=== PATIENT | male | born 1960 | race Caucasian/White ===

== ENCOUNTER 2018-03-25 14:36 | Outpatient (REF) | payer MEDICAID, SELFPAY ==
[2018-03-25 15:04] LABS: HCT 42.9 % (40.0-50.0); HGB 14.6 g/dL (13.5-17.5); Mean Corpuscular Hemoglobin 31.9 pg (27.0-33.0); Mean Corpuscular Volume 93.7 fL (80-95); Mean Platelet Volume 12.4 fL (8.0-11.0); Platelet Count 227 x1000/uL (130-400); RBC 4.58 m/cumm (4.50-6.00); RBC Distribution Width 12.6 % (11.8-14.1); White Blood Cell Count 6.69 k/cumm (4.4-10.8)
[2018-03-25 15:45] LABS: ALT 27 U/L (12-78); AST 16 U/L (15-37); Alkaline Phosphatase 45 U/L (46-116); Anion Gap 8.4 mmol/L (3-11); BUN 16 mg/dL (7-18); Bilirubin, Total 0.4 mg/dL (0.2-1.0); CO2 27.6 mmol/L (21.0-32.0); CREATININE 1.13 mg/dL (0.70-1.30); Chloride 105 mmol/L (98-107); Cholesterol 195 mg/dL (50-200); Glucose 131 mg/dL (70-100); HDL Cholesterol 34 mg/dL (40-60); LDL CHOLESTEROL 131 mg/dL (<100); Potassium 4.3 mmol/L (3.5-5.1); Sodium 141 mmol/L (136-145); Total Protein 6.9 g/dL (6.4-8.2); Triglyceride 138 mg/dL (30-150); Vitamin B12 251 pg/mL (193-986)
== END 2018-03-25 14:56 ==
LOC: NCHCN 14:36
PROVIDERS: PCP Nurse Practitioner Family; Visit Provider Nurse Practitioner
DX: F10.10 Alcohol abuse, uncomplicated (principal); M10.9 Gout, unspecified; Z13.220 Encounter for screening for lipoid disorders; Z13.1 Encounter for screening for diabetes mellitus; M25.50 Pain in unspecified joint
CPT/HCPCS: 80053; 80061; 83721; 85027; 82607; 84550

== ENCOUNTER 2018-11-03 11:17 | Outpatient (REF) | payer MEDICAID, SELFPAY ==
[2018-11-03 20:25] LABS: TSH (W/Ref FT4) 1.61 uIU/mL (0.358-3.74)
[2018-11-03 21:06] LABS: ESR 8 MM/HR (1-20)
[2018-11-05 10:01] LABS: Rheumatoid Factor <8 IU/mL (<12.5)
[2018-11-05 15:42] LABS: ANA Interpretation Negative (NEGAT)
== END 2018-11-03 11:37 ==
LOC: NCHCN 11:17
PROVIDERS: PCP Nurse Practitioner Family; Visit Provider Nurse Practitioner
DX: G62.9 Polyneuropathy, unspecified (principal)
CPT/HCPCS: 85652; 84443; 86038; 86431

== ENCOUNTER 2019-04-18 19:58 | Outpatient (REF) | payer MEDICAID, SELFPAY ==
[2019-04-18 20:13] LABS: Vitamin B12 432 pg/mL (193-986)
[2019-04-21 13:14] LABS: Albumin 64.1 % (55.8-66.1); Total Protein 7.2 g/dL (6.3-8.2)
== END 2019-04-18 20:18 ==
LOC: NCHCN 19:58
PROVIDERS: PCP Nurse Practitioner; Visit Provider Nurse Practitioner
DX: G62.9 Polyneuropathy, unspecified (principal)
CPT/HCPCS: 82607; 84165

== ENCOUNTER 2019-09-29 12:42 | Outpatient (REF) | payer MEDICAID, SELFPAY ==
[2019-09-29 14:43] LABS: Hemoglobin A1C 11.1 % (3.8-5.6)
[2019-09-29 14:56] LABS: ALT 31 U/L (16-63); AST 13 U/L (15-37); Albumin 4.1 g/dL (3.4-5.0); Alkaline Phosphatase 67 U/L (46-116); Anion Gap 6.6 mmol/L (3-11); BUN 12 mg/dL (7-18); Bilirubin, Total 0.8 mg/dL (0.2-1.0); CO2 28.4 mmol/L (21.0-32.0); CREATININE 1.21 mg/dL (0.70-1.30); Calcium 9.3 mg/dL (8.5-10.1); Calculated LDL 123 mg/dL (<100); Chloride 101 mmol/L (98-107); Cholesterol 189 mg/dL (<200); HDL Cholesterol 35 mg/dL (40-60); Potassium 4.8 mmol/L (3.5-5.1); Sodium 136 mmol/L (136-145); Triglyceride 156 mg/dL (<150); Vitamin B12 807 pg/mL (193-986)
[2019-09-29 15:12] LABS: Glucose 485 mg/dL (74-106)
[2019-09-30 10:01] LABS: PSA, Screening 0.7 ng/mL (0.0-3.5)
== END 2019-09-29 13:02 ==
LOC: NCHCN 12:42
PROVIDERS: PCP Nurse Practitioner; Visit Provider Nurse Practitioner
DX: R73.03 Prediabetes (principal); R03.0 Elevated blood-pressure reading, without diagnosis of hypertension; G62.9 Polyneuropathy, unspecified; Z12.5 Encounter for screening for malignant neoplasm of prostate
CPT/HCPCS: 80053; 80061; 84153; 82607; 83036

== ENCOUNTER 2020-05-24 14:34 | Outpatient (REF) | payer MEDICAID, SELFPAY ==
[2020-05-24 15:05] LABS: COMMENT (LAB VIEW ONLY) 12.79 mg/dL
== END 2020-05-24 14:35 | disposition home or self-care (01) ==
LOC: NCHCN 14:34
PROVIDERS: PCP Nurse Practitioner; Visit Provider Nurse Practitioner
DX: E11.9 Type 2 diabetes mellitus without complications (principal)
CPT/HCPCS: 82043; 82570

== ENCOUNTER 2020-09-18 10:04 | Outpatient (REF) | payer MEDICAID, SELFPAY ==
[2020-09-18 16:18] LABS: ALT 32 U/L (16-63); AST 17 U/L (15-37); Albumin 4.1 g/dL (3.4-5.0); Alkaline Phosphatase 54 U/L (46-116); Anion Gap 11.3 mmol/L (3-11); BUN 16 mg/dL (7-18); Bilirubin, Total 0.5 mg/dL (0.2-1.0); CO2 25.7 mmol/L (21.0-32.0); CREATININE 1.1 mg/dL (0.70-1.30); Calculated LDL 111 mg/dL (<100); Chloride 104 mmol/L (98-107); Cholesterol 175 mg/dL (<200); Glucose 162 mg/dL (74-106); HDL Cholesterol 36 mg/dL (40-60); Potassium 4.2 mmol/L (3.5-5.1); Sodium 141 mmol/L (136-145); Total Protein 7.2 g/dL (6.4-8.2); Triglyceride 141 mg/dL (<150)
== END 2020-09-18 10:05 | disposition home or self-care (01) ==
LOC: NCHCN 10:04
PROVIDERS: PCP Nurse Practitioner; Visit Provider Nurse Practitioner
DX: E11.9 Type 2 diabetes mellitus without complications (principal)
CPT/HCPCS: 80053; 80061

== ENCOUNTER 2020-11-20 03:55 | Outpatient (CLI) | payer MEDICAID, SELFPAY ==
[2020-11-24 16:23] LABS: Testosterone, Total 346 ng/dL (240-950)
== END 2020-11-20 03:56 | disposition home or self-care (01) ==
LOC: LBO 03:56
PROVIDERS: PCP Nurse Practitioner; Visit Provider Nurse Practitioner Gerontology
DX: N52.9 Male erectile dysfunction, unspecified (principal); R53.83 Other fatigue
CPT/HCPCS: 84403

== ENCOUNTER 2021-03-18 08:31 | Outpatient (REF) | payer MEDICAID, SELFPAY ==
[2021-03-18 14:32] LABS: HCT 44.5 % (40.0-50.0); HGB 14.9 g/dL (13.5-17.5); MCH 31.3 pg (27.0-33.0); MCHC 33.5 % (32.0-36.0); MCV 93.5 fL (80-95); MPV 11.8 fL (8.0-11.0); Platelet Count 219 10^3/uL (130-400); RBC 4.76 10^6/uL (4.36-5.78); RDW 12.2 % (11.8-14.1); RDW-SD 42.4 fL; WBC 8.16 10^3/uL (4.4-10.8)
== END 2021-03-18 08:32 | disposition home or self-care (01) ==
LOC: NCHCN 08:31
PROVIDERS: PCP Nurse Practitioner; Visit Provider Nurse Practitioner
DX: R53.83 Other fatigue (principal)
CPT/HCPCS: 85027

== ENCOUNTER 2021-06-17 02:05 | Outpatient (CLI) | payer MEDICAID, SELFPAY ==
[2021-06-17 10:52] LABS: Source Nasal/Nares
[2021-06-17 17:07] LABS: COVID-19 PCR Negative (Negative)
== END 2021-06-17 02:06 | disposition home or self-care (01) ==
LOC: LBO 02:06
PROVIDERS: PCP Nurse Practitioner Family; Visit Provider Surgery
DX: Z20.822 Contact with and (suspected) exposure to COVID-19 (principal); Z01.818 Encounter for other preprocedural examination
CPT/HCPCS: 87635

== ENCOUNTER 2021-06-19 09:38 | Day surgery (SDC) | payer MEDICAID, SELFPAY ==
--- NOTE | 2021-06-19 06:57 | W.COLOREPORT ---
Colonoscopy Report Date of procedure: 06/19/21 Pre-op diagnosis general: Colon Cancer Screening Post-op diagnosis procedure note: other (colorectal polyps) Procedure: Colonoscopy with polypectomy Surgeon: Aparna Rogers Anesthesia Type: General:No Airway Estimated blood loss (mL): 3 Pathology: other (descending polyp, sigmoid polyp x3, rectal polyp x2) Complications: None Disposition: same day Indications: The patient is here for Colonoscopy pre-op. He has no family history of colon cancer. He has not had any bowel habit changes. -Discussed colonoscopy bowel prep as well as the procedure. Discussed possible complications of the procedure to include bleeding, pain, perforation, missed small lesion/polyp, sore throat, aspiration and adverse reaction to the medications. Questions were answered to patient?s satisfaction. No guarantees were implied or given.? P// Colonoscopy under sedation Prep: Miralax/Dulcolax Procedure Start Time: 11:00 Procedure End Time: 11:27 Retraction Time: 15 minutes Findings: Multiple small flat polyps Procedure Description: After informed consent was obtained the patient was taken to the procedure room and placed in a left decubitous position. Monitors were applied and a time out was done. The patients name, date of , procedure, allergies to medications and metal in their body was reviewed. The patient was then sedated. Once sedated and comfortable a rectal exam was done. External exam was normal. Internal exam revealed a normal sphincter tone and no palpable masses. The prostate felt smooth. The scope was then introduced and retro-flexed. No internal hemorrhoids, polyps or masses were identified on retro-flexion. The scope was then advanced to the cecum without difficulty. The ileocecal vlave and appendiceal orifice were identified. The prep was good. The scope was then slowly retracted over 15 minutes back into the rectum. Polyps were removed with cold forceps in the descending colon, sigmoid colon x3 and rectum x2. There was no diverticulosis noted. The scope was removed and the patient was woken up and taken back to Same day surgery in stable condition. The patient tolerated the procedure well and there were no immediate complications. Follow up: Follow up will depend on pathology results
--- NOTE | 2021-06-19 06:58 | PDOC.DSDIS_ITS ---
Discharge Plan Disposition Patient Disposition: HOME Condition: Good Discharge Details Reason For Visit: [place] Attending Provider: Aparna Rogers Primary Care Provider: Jannette Loyd Home Meds and New Rx's Prescriptions: Continued omega-3 fatty acids 500 mg capsule 500 mg PO DAILY 0RF multivitamin Tablet 1 tab PO DAILY 0RF vitamin B complex [B Complex 1] Tablet 1 tab PO DAILY 0RF metformin 500 mg tablet 1,000 mg PO BID 0RF sildenafil [Viagra] 50 mg tablet 50 mg PO DAILY PRN0RF Rx Instructions: administer 30 minutes to 4 hours before activity gabapentin 600 mg tablet 600 mg PO BID Qty: 90 2RF Rx Instructions: Use in combination with 300 mg capsules for a total dose of 900 mg twice a day. gabapentin 300 mg capsule 300 mg PO BID Qty: 90 2RF Rx Instructions: Use in combination with 600 mg capsules for a total dose of 900 mg twice a day Lantus Solostar U-100 Insulin 100 unit/mL (3 mL) insulin pen 33 unit SC HS 0RF tamsulosin [Flomax] 0.4 mg capsule 0.4 mg PO HS 0RF Discharge Instructions Instructions: Colorectal Polyps (DC) Additional Instructions: Findings: 5 small polyps Follow up: will depend on the pathology results Please call if you develop: fevers >101.5 Nausea or Vomiting Abdominal pain that is not transient Rectal bleeding that is more then a tbsp A hard abdomen and inability to pass gas DAY SURGERY UNIT POST ENDOSCOPY INSTRUCTIONS Instructions for everyone who is given Anesthesia: For your safety, please do the following for the next 24 Hours: a. Do not drive or operate dangerous equipment b. Do not drink alcohol beverages or use any recreational drugs for the first 24 hours or while taking pain medications. The medications in your body may have a reaction that can be dangerous. c. Do not make any important decisions or sign any important papers 1. Generally there are no restrictions on your activity after a day or so has gone by, but you may feel a bit fatigued for a few days. 2. After you arrive home you may have a light meal and return to a normal diet as you can tolerate it without feeling sick to your stomach. 3. After surgery, you may feel pain or discomfort. This should be only transient, but if it persists please contact your doctor. 4. If there are any questions regarding the findings of your procedure, please feel free to contact your doctor. 6. If you are unable to contact your doctor with a problem, contact the hospital at [phone]. 7. Continue all your regular medications unless directed otherwise. I understand the above instructions and have no questions. Signature of Patient or Responsible Adult Escort Date/Time Name of Responsible Adult Escort Signature of Nurse Date/Time Activity:: Activity as Tolerated Diet:: As Tolerated Discharge Orders Discharge Orders: Discharge Order (Routine); Ordered 06/19/21 Ordered By: Aparna Rogers
[2021-06-19 09:42] VITALS: BP 138/68; PULSE 123; RESP 16; TEMP 36.6; O2SAT 96
--- NOTE | 2021-06-19 10:17 | ANES.PREOP_ITS ---
General Info Date of Service Date Performed: 06/19/21 Height: 6 ft 3 in Weight: 116.2 kg Body Mass Index (BMI): 32.0 Surgical Procedure: Operation Date: 06/19/21 11:20 Proposed Procedure Side Surgeon p Colonoscopy Aparna Rogers MD Meds Allergies and Home Medications Allergies Allergy/AdvReac Type Severity Reaction Status Date / Time No Known Allergies Allergy Verified 06/19/21 09:47 Home Medication Medication Instructions Recorded multivitamin 1 tab PO DAILY 02/22/19 vitamin B complex (B Complex 1) 1 tab PO DAILY 02/22/19 omega-3 fatty acids 500 mg capsule 500 mg PO DAILY 04/04/19 metformin 500 mg tablet 1,000 mg PO BID tab 01/19/20 sildenafil 50 mg tablet (Viagra) 50 mg PO DAILY PRN 11/08/20 gabapentin 300 mg capsule 300 mg PO BID #90 cap 02/28/21 gabapentin 600 mg tablet 600 mg PO BID #90 tab 02/28/21 insulin glargine 100 unit/mL (3 33 unit SC HS ml 05/03/21 mL) subcutaneous pen (Lantus Solostar U-100 Insulin) tamsulosin 0.4 mg capsule (Flomax) 0.4 mg PO HS 06/18/21 Current Visit Medications: Current Medications Generic Name Dose Route Start Last Admin Trade Name Freq PRN Reason Stop Dose Admin Hyoscyamine Sulfate 0.125 mg 06/19/21 06:59 Hyoscyamine 0.125 Mg Sl/Oral/Chew SL DIRECTED PRN Ringer's Solution 1,000 mls @ 80 mls/hr 06/19/21 06:00 IV 07/18/21 23:59 INFUSION [facility] IV Miscellaneous Supplies 1 each 06/19/21 06:00 Iv Access IV 07/18/21 23:59 DIRECTED IVY Ondansetron HCl 4 mg 06/19/21 06:59 Ondansetron 4 Mg/2 Ml Vial IVP Q4H PRN PRN Nausea / Vomiting Sodium Chloride 0 ml 06/19/21 06:00 Normal Saline Flush 10 Ml Syr IV 07/18/21 23:59 PRN PRN Sodium Chloride 0 ml 06/19/21 06:00 Normal Saline 10 Ml Vial IJ 07/18/21 23:59 DIRECTED PRN Sterile Water 0 ml 06/19/21 06:00 Water,Injection,Sterile 10 Ml Vial IJ 07/18/21 23:59 DIRECTED PRN PFSH Active Problems Active Problems: Problem Status Onset Code BPH w urinary obs/LUTS N40.1, N13.8 Erectile dysfunction N52.9 Metatarsalgia M77.40 Sebaceous cyst L72.3 Urinary frequency R35.0 Screening for colon cancer Z12.11 Type 2 diabetes mellitus E11.9 B12 deficiency E53.8 ETOH abuse F10.10 Peripheral neuropathy G62.9 Medical History Medical History Bunion, left foot Bunion, right foot Elevated blood pressure reading History of ETOH abuse Joint pain Surgical History Surgical History No significant past surgical history Tobacco Smoking/Tobacco Use Status: Former Tobacco Use Alcohol Alcohol Intake: former Year quit: 2017 Substance Use Substance use: Never Substance use type: does not use Vital Signs and Lab Results Vital Signs Most Recent Vital Signs in EMR: Most Recent Vital Signs Temp Pulse Resp BP Pulse Ox 36.6 C 123 H 16 138/68 96 06/19/21 09:42 06/19/21 09:42 06/19/21 09:42 06/19/21 09:42 06/19/21 09:42 Lab Results Blood Type / Crossmatch: No Data to Display Complete Blood Count: No Data to Display Complete Metabolic Panel: No Data to Display Liver Function Panel: No Data to Display Coagulation Panel: No Data to Display Cardiac Panel: No Data to Display Arterial Blood Gas: No Data to Display Venous Blood Gas: No Data to Display Pancreas Panel: No Data to Display Thyroid Panel: No Data to Display Infectious Disease: Coronavirus (COVID-19)(PCR) Negative (Negative) 06/17/21 09:33 06/17/21 Coronavirus 2019 Source Nasal/Nares 06/17/21 09:33 06/17/21 Blood Cultures: No Data to Display Toxicology Panel: No Data to Display Anesthesia Assessment and Plan Anesthesia History Personal History: No History of General Anesthesia Family History: No Family History of Anesthesia Complications Exercise Tolerance Exercise Tolerance: Metabolic Equivalents>4 Pertinent Negatives Pertinent Negatives: No Symptoms of GERD, No Major Cardiovascular Symptoms or Complaints, No Major Pulmonary Symptoms or Complaints (Undiagnosed probable MAICOL) and No History of CVA/TIA Cardiac & Pulmonary Exam Cardiac Exam: Normal S1/S2 Heart Sounds Pulmonary Exam: Clear Bilateral Breath Sounds Implantable Cardiac Device Does patient have a Pacemaker or an ICD?: No Airway Exam Known Difficult Airway: No Mallampati Class: 1 Mouth Opening: Normal (> 3cm) Thyromental Distance: Greater than 3 cm Neck Range of Motion: Full ROM Neck Circumference: Thick Teeth Condition: Normal Dentition ASA Classification ASA Score: ASA 2 Emergency Case?: No NPO Status NPO Status: NPO Clears >2 hours, Solids >8 hours Anesthesia Plan Resuscitation Status: Full Code Anesthesia Technique: General Anesthesia Airway Planned: Natural Airway Monitors Used: Standard Monitors
[2021-06-19] MEDS: Lactated Ringers 1,000 ML 80 ML IV (10:19)
--- NOTE | 2021-06-19 11:20 | BOWEL_PTH ---
PATIENT: Russell Loyola LOC: [facility] U#:[id number] AGE/SX: 61/M ROOM: RE06/19/[address]: Aparna Rogers MD : 1960 BED: DIS: 06/19/2021 SPEC #: [id number] RECD: 06/19/21 13:00 STATUS: NARINDER REGa #: [id number] BRIGETTE: 06/19/21 11:[address]: Aparna Rogers DEPT: Surgical Specimen RECD BY: Uyen Darby ENTERED: 06/19/21 13:01 SP TYPE: Bowel OTHR DR: Jannette Loyd Tissues: 1 - BIOPSY BOWEL 2 - BIOPSY BOWEL 3 - BIOPSY BOWEL Procedures: GROSS AND MICRO LEVEL 4 Comments: [id number]
[2021-06-19 11:34] VITALS: BP 111/96; PULSE 105; RESP 17; TEMP 36.6; O2SAT 93
[2021-06-19 12:04] VITALS: BP 120/85; PULSE 82; RESP 16; TEMP 36.6; O2SAT 93
--- NOTE | 2021-06-21 07:03 | W.ANESPOSTOP ---
Postoperative Evaluation Date, Time and Location Date Performed: 06/19/21 Time Performed: 12:30 Patient Location: Day Surgery Unit Vital Signs Most Recent Imported Vital Signs: Most Recent Vital Signs Temp Pulse Resp BP Pulse Ox 36.6 C 82 16 120/85 93 06/19/21 12:04 06/19/21 12:04 06/19/21 12:04 06/19/21 12:04 06/19/21 12:04 Pain Score Most Recent Pain Score: Most Recent Pain Score Pain Level 0 06/19/21 12:04 Assessment Mental Status: Awake (Alert & Oriented to Patient Baseline) Airway and Respiratory Function: Patent airway with normal (patient baseline) respiratory exam Cardiovascular Function: Hemodynamically Stable Hydration Status: Adequately Hydrated Nausea & Vomiting: No Nausea or Vomiting Pain: Pt. Denies Any Pain Peripheral Nerve Block: Patient did not receive a nerve block
--- NOTE | 2021-06-21 07:08 | W.ANESPRE ---
General Info Date of Service Date Performed: 06/21/21 Height: 6 ft 3 in Weight: 116.2 kg Body Mass Index (BMI): 32.0 Surgical Procedure: Operation Date: 06/19/21 11:20 Proposed Procedure Side Surgeon p Colonoscopy Aparna Rogers MD Actual Procedure Side Surgeon p Colonoscopy W/POLYPECTOMIES Not Applicable Aparna Rogers MD Pre-Op Diagnosis Post-Op Diagnosis COLON CANCER SCREENING POLYPS Meds Allergies and Home Medications Allergies Allergy/AdvReac Type Severity Reaction Status Date / Time No Known Allergies Allergy Verified 06/19/21 09:47 Home Medication Medication Instructions Recorded multivitamin 1 tab PO DAILY 02/22/19 vitamin B complex (B Complex 1) 1 tab PO DAILY 02/22/19 omega-3 fatty acids 500 mg capsule 500 mg PO DAILY 04/04/19 metformin 500 mg tablet 1,000 mg PO BID tab 01/19/20 sildenafil 50 mg tablet (Viagra) 50 mg PO DAILY PRN 11/08/20 gabapentin 300 mg capsule 300 mg PO BID #90 cap 02/28/21 gabapentin 600 mg tablet 600 mg PO BID #90 tab 02/28/21 insulin glargine 100 unit/mL (3 33 unit SC HS ml 05/03/21 mL) subcutaneous pen (Lantus Solostar U-100 Insulin) tamsulosin 0.4 mg capsule (Flomax) 0.4 mg PO HS 06/18/21 PFSH Active Problems Active Problems: Problem Status Onset Code BPH w urinary obs/LUTS N40.1, N13.8 Erectile dysfunction N52.9 Metatarsalgia M77.40 Sebaceous cyst L72.3 Urinary frequency R35.0 Screening for colon cancer Z12.11 Type 2 diabetes mellitus E11.9 B12 deficiency E53.8 ETOH abuse F10.10 Peripheral neuropathy G62.9 Medical History Medical History Bunion, left foot Bunion, right foot Elevated blood pressure reading History of ETOH abuse Joint pain Surgical History Surgical History No significant past surgical history Tobacco Smoking/Tobacco Use Status: Former Tobacco Use Alcohol Alcohol Intake: former Year quit: 2018 Substance Use Substance use: Never Substance use type: does not use Vital Signs and Lab Results Vital Signs Most Recent Vital Signs in EMR: Most Recent Vital Signs Temp Pulse Resp BP Pulse Ox 36.6 C 82 16 120/85 93 06/19/21 12:04 06/19/21 12:04 06/19/21 12:04 06/19/21 12:04 06/19/21 12:04 Point of Care Results Point of Care Results: Finger Stick Blood Glucose 125 06/19/21 10:12 Lab Results Blood Type / Crossmatch: No Data to Display Complete Blood Count: No Data to Display Complete Metabolic Panel: No Data to Display Liver Function Panel: No Data to Display Coagulation Panel: No Data to Display Cardiac Panel: No Data to Display Arterial Blood Gas: No Data to Display Venous Blood Gas: No Data to Display Pancreas Panel: No Data to Display Thyroid Panel: No Data to Display Infectious Disease: Coronavirus (COVID-19)(PCR) Negative (Negative) 06/17/21 09:33 06/17/21 Coronavirus 2019 Source Nasal/Nares 06/17/21 09:33 06/17/21 Blood Cultures: No Data to Display Toxicology Panel: No Data to Display Anesthesia Assessment and Plan Anesthesia History Personal History: No History of General Anesthesia Family History: No Family History of Anesthesia Complications Exercise Tolerance Exercise Tolerance: Metabolic Equivalents>4 Pertinent Negatives Pertinent Negatives: No Symptoms of GERD, No Major Cardiovascular Symptoms or Complaints (Hx rapid AFib/ palpitations ), No Major Pulmonary Symptoms or Complaints (Hx reactive airway ) and No History of CVA/TIA Cardiac & Pulmonary Exam Cardiac Exam: Normal S1/S2 Heart Sounds Pulmonary Exam: Clear Bilateral Breath Sounds Implantable Cardiac Device Does patient have a Pacemaker or an ICD?: No Airway Exam Known Difficult Airway: No Mallampati Class: 1 Mouth Opening: Normal (> 3cm) Thyromental Distance: Greater than 3 cm Neck Range of Motion: Full ROM Neck Circumference: Thick Teeth Condition: Normal Dentition ASA Classification ASA Score: ASA 2 Emergency Case?: No NPO Status NPO Status: NPO Clears >2 hours, Solids >8 hours Anesthesia Plan Resuscitation Status: Full Code Anesthesia Technique: General Anesthesia Airway Planned: Natural Airway Monitors Used: Standard Monitors
[2021-06-21 07:12] VITALS: BMI 32.0
== END 2021-06-19 12:28 | disposition home or self-care (01) ==
LOC: SUR 09:38
PROVIDERS: PCP Nurse Practitioner Family; Visit Provider Surgery
PROC: 0DJD8ZZ Inspection of Lower Intestinal Tract, Via Natural or Artificial Opening Endoscopic (ICD-10-PCS; CPT 45378; principal; 2021-06-19 11:15)
DX: Z12.11 Encounter for screening for malignant neoplasm of colon (principal); K63.5 Polyp of colon; K62.1 Rectal polyp
CPT/HCPCS: 45380; 88305; J2001; J2704

== ENCOUNTER 2021-07-02 18:46 | Outpatient (REF) | payer MEDICAID, SELFPAY ==
[2021-07-02 15:00] LABS: ALT 47 U/L (16-63); AST 27 U/L (15-37); Albumin 4.3 g/dL (3.4-5.0); Alkaline Phosphatase 52 U/L (46-116); Anion Gap 9.6 mmol/L (3-11); BUN 12 mg/dL (7-18); Bilirubin, Total 0.6 mg/dL (0.2-1.0); CO2 25.4 mmol/L (21.0-32.0); CREATININE 1.1 mg/dL (0.70-1.30); Calcium 8.9 mg/dL (8.5-10.1); Chloride 105 mmol/L (98-107); Glucose 147 mg/dL (74-106); Potassium 4.4 mmol/L (3.5-5.1); Sodium 140 mmol/L (136-145); Total Protein 7.5 g/dL (6.4-8.2); Uric Acid 8.3 mg/dL (3.5-7.2)
== END 2021-07-02 18:47 | disposition home or self-care (01) ==
LOC: NCHCN 18:46
PROVIDERS: PCP Nurse Practitioner Family; Visit Provider Nurse Practitioner Family
DX: M10.9 Gout, unspecified (principal); R03.0 Elevated blood-pressure reading, without diagnosis of hypertension; Z87.898 Personal history of other specified conditions
CPT/HCPCS: 80053; 84550

== ENCOUNTER 2021-09-13 19:07 | Outpatient (REF) | payer MEDICAID, SELFPAY ==
[2021-09-13 14:49] LABS: Uric Acid 9.2 mg/dL (3.5-7.2)
== END 2021-09-13 19:08 | disposition home or self-care (01) ==
LOC: NCHCN 19:07
PROVIDERS: PCP Nurse Practitioner Family; Visit Provider Nurse Practitioner Family
DX: M10.9 Gout, unspecified (principal)
CPT/HCPCS: 84550

== ENCOUNTER → 2022-06-09 08:55 | Outpatient (BNVA) | payer MEDICARE, MEDICAID, SELFPAY | PROVIDERS: PCP Nurse Practitioner Family; Referring Provider Nurse Practitioner Family; Visit Provider Nurse Practitioner Adult Health | DX: G62.1 Alcoholic polyneuropathy (principal); E11.42 Type 2 diabetes mellitus with diabetic polyneuropathy; E53.8 Deficiency of other specified B group vitamins | CPT/HCPCS: 99213 ==

== ENCOUNTER 2022-06-12 13:07 | Outpatient (REF) | payer MEDICARE, MEDICAID, SELFPAY ==
[2022-06-12 14:16] LABS: HCT 47.4 % (40.0-50.0); HGB 15.7 g/dL (13.5-17.5); MCH 30.7 pg (27.0-33.0); MCHC 33.1 % (32.0-36.0); MCV 93 fL (80-95); MPV 11.3 fL (8.0-11.0); Platelet Count 221 10^3/uL (130-400); RBC 5.12 10^6/uL (4.36-5.78); RDW 12.3 % (11.8-14.1); RDW-SD 42.3 fL; WBC 8.09 10^3/uL (4.4-10.8)
[2022-06-12 15:01] LABS: ALT 40 U/L (16-63); AST 21 U/L (15-37); Albumin 4.7 g/dL (3.4-5.0); Alkaline Phosphatase 55 U/L (46-116); Anion Gap 8.1 mmol/L (3-11); BUN 12 mg/dL (7-18); Bilirubin, Total 0.6 mg/dL (0.2-1.0); CO2 29.9 mmol/L (21.0-32.0); CREATININE 1.1 mg/dL (0.70-1.30); Calcium 10.1 mg/dL (8.5-10.1); Chloride 104 mmol/L (98-107); Estimated GFR 76.37 (mL/min/1.73m2); Glucose 122 mg/dL (74-106); Sodium 142 mmol/L (136-145)
== END 2022-06-12 13:08 | disposition home or self-care (01) ==
LOC: NCHCN 13:07
PROVIDERS: PCP Nurse Practitioner Family; Visit Provider Nurse Practitioner Family
DX: E11.9 Type 2 diabetes mellitus without complications (principal); Z12.5 Encounter for screening for malignant neoplasm of prostate; N40.1 Benign prostatic hyperplasia with lower urinary tract symptoms
CPT/HCPCS: 80053; 84153; 85027

== ENCOUNTER → 2022-08-26 10:21 | Outpatient (BNVA) | payer MEDICARE, MEDICAID, SELFPAY | PROVIDERS: PCP Nurse Practitioner Family; Visit Provider Nurse Practitioner Gerontology | DX: N40.1 Benign prostatic hyperplasia with lower urinary tract symptoms (principal); N13.8 Other obstructive and reflux uropathy | CPT/HCPCS: 51798; 99214 ==

== ENCOUNTER 2022-11-19 14:50 | Outpatient (CLI) | payer MEDICARE, MEDICAID, SELFPAY ==
--- NOTE | 2022-11-19 14:45 | DI.RAD_ITS ---
Exam(s) XR SHOULDER LT COMPLETE 2+V EXAM: XR SHOULDER LT COMPLETE 2+V CLINICAL HISTORY: LEFT SHOULDER PAIN. TECHNIQUE: 2D digital imaging was performed. Three views. COMPARISON: No exams were available for comparison FINDINGS: BONES: No acute fracture is present. No bony destructive lesion is seen. JOINTS: No dislocation present. No significant AC joint spurring. Mild spurring at the glenoid. Gl enohumeral joint space is maintained. SOFT TISSUE: Normal. IMPRESSION: Mild degenerative changes. DATA REPOSITORY: RADIATION DOSE DELIVERED:
== END 2022-11-19 14:51 | disposition home or self-care (01) ==
LOC: DIORS 14:50
PROVIDERS: PCP Nurse Practitioner Family; Referring Provider Nurse Practitioner Family; Visit Provider Student in an Organized Health Care Education/Training Program
DX: M75.02 Adhesive capsulitis of left shoulder
CPT/HCPCS: 20610; 99203; 99213; 73030; J1030

== ENCOUNTER → 2022-12-09 08:35 | Outpatient (BNVA) | payer MEDICARE, MEDICAID, SELFPAY | PROVIDERS: PCP Nurse Practitioner Family; Visit Provider Nurse Practitioner Adult Health | DX: E11.42 Type 2 diabetes mellitus with diabetic polyneuropathy (principal); G62.1 Alcoholic polyneuropathy | CPT/HCPCS: 99213 ==

== ENCOUNTER → 2022-12-10 10:13 | Outpatient (BNVA) | payer MEDICARE, MEDICAID, SELFPAY | PROVIDERS: PCP Nurse Practitioner Family; Referring Provider Nurse Practitioner Family; Visit Provider Nurse Practitioner Gerontology | DX: N40.1 Benign prostatic hyperplasia with lower urinary tract symptoms (principal); N13.8 Other obstructive and reflux uropathy; E11.9 Type 2 diabetes mellitus without complications | CPT/HCPCS: 51798; 99213 ==

== ENCOUNTER → 2023-01-16 01:01 | Outpatient (CLI) | payer MEDICARE, MEDICAID, SELFPAY ==
--- NOTE | 2023-01-16 07:30 | DI.MRI_ITS ---
Exam(s) MR UPPER JOINT LT WO EXAM: MR UPPER JOINT LT WO CLINICAL HISTORY: L SHOULDER PAIN,adhesive capsulitis,m75.02. TECHNIQUE: Multiplanar multisequence MRI was performed. COMPARISON: CR XR SHOULDER LT COMPLETE 2+V from 11/19/2022 FINDINGS: The examination is limited due to patient motion artifact. BONES: There is no fracture or contusion pattern. JOINTS: Mild degenerative changes are seen at the acromioclavicular joint. The glenohumeral joint is normal. TENDONS: Supraspinatus: There is a partial intrasubstance tear of the supraspinatus tendon at its insertion si te. (Series 6001, image 13). Tendinosis of the supraspinatus tendon. Infraspinatus: There is also hyperintense signal seen at the insertion site of the infraspinatus tend on. (Series 8001, image 7). Subscapularis: Unremarkable. Teres Minor: Unremarkable. Biceps and [place]: Unremarkable. MUSCLES: Unremarkable. GLENOID LABRUM: No gross abnormality is identified, however evaluation of the labrum is suboptimal du e to motion artifact. SOFT TISSUES: Unremarkable. LIGAMENTS: Unremarkable. OTHER: There is a small amount of fluid in the subacromial subdeltoid bursa. IMPRESSION: 1. Examination limited by patient motion artifact. 2. Findings suggestive of tears involving the supraspinatus and infraspinatus tendon as described abo ve. 3. Small amount of fluid in the subacromial subdeltoid bursa. 4. Degenerative changes seen at the acromioclavicular joint. DATA REPOSITORY:
== END ==
PROVIDERS: PCP Nurse Practitioner Family; Visit Provider Student in an Organized Health Care Education/Training Program
DX: M75.02 Adhesive capsulitis of left shoulder (principal); M25.512 Pain in left shoulder
CPT/HCPCS: 73221

== ENCOUNTER → 2023-01-21 09:12 | Outpatient (BNVA) | payer MEDICARE, MEDICAID, SELFPAY | PROVIDERS: PCP Nurse Practitioner Family; Referring Provider Nurse Practitioner Family; Visit Provider Student in an Organized Health Care Education/Training Program | DX: M75.02 Adhesive capsulitis of left shoulder (principal) | CPT/HCPCS: 99214 ==

== ENCOUNTER 2023-02-05 09:12 | Day surgery (SDC) | payer MEDICARE, MEDICAID, SELFPAY ==
[2023-02-05] VITALS (12 sets, daily range): BP systolic 114–157; BP diastolic 78–101; PULSE 59–97; RESP 11–20; TEMP 36.3–36.6; O2SAT 95–99; BMI 30.9
--- NOTE | 2023-02-05 06:55 | W.ANESPRE ---
General Info Date of Service Date Performed: 02/05/23 Height: 6 ft 3 in Weight: 112.491 kg Body Mass Index (BMI): 30.9 Surgical Procedure: Operation Date: 02/05/23 11:40 Proposed Procedure Side Surgeon p Shoulder Manipulation Left Man Singh MD Meds Allergies and Home Medications Allergies Allergy/AdvReac Type Severity Reaction Status Date / Time No Known Allergies Allergy Verified 02/04/23 14:39 Home Medication Medication Instructions Recorded multivitamin 1 tab PO DAILY 02/22/19 vitamin B complex (B Complex 1 1 tab PO DAILY 02/22/19 tablet) omega-3 fatty acids 500 mg capsule 500 mg PO DAILY 04/04/19 metformin 500 mg tablet 1,000 mg PO BID 01/19/20 allopurinol 100 mg tablet 100 mg PO DAILY 06/09/22 vardenafil 10 mg tablet 10 mg PO DAILY 06/26/22 gabapentin 300 mg capsule See Rx Instructions .Route 12/09/22 .COMPLEX #180 caps gabapentin 600 mg tablet See Rx Instructions .Route 12/09/22 .COMPLEX #90 tabs insulin glargine 100 unit/mL (3 3 unit subcut QPM 01/21/23 mL) subcutaneous pen (Lantus Solostar U-100 Insulin) tamsulosin 0.4 mg capsule 0.4 mg PO DAILY 01/21/23 celecoxib 100 mg capsule (Celebrex) 100 mg PO BID 02/04/23 Current Visit Medications: Current Medications Generic Name Dose Route Start Last Admin Trade Name Freq PRN Reason Stop Dose Admin Ringer's Solution 1,000 mls @ 30 mls/hr 02/05/23 06:00 IV 03/06/23 23:59 INFUSION IVY IV Miscellaneous Supplies 1 each 02/05/23 06:00 Iv Access IV 03/06/23 23:59 DIRECTED IVY Sodium Chloride 0 ml 02/05/23 06:00 Normal Saline Flush 10 Ml Syr IV 03/06/23 23:59 PRN PRN Sodium Chloride 0 ml 02/05/23 06:00 Normal Saline 10 Ml Vial IJ 03/06/23 23:59 DIRECTED PRN Sterile Water 0 ml 02/05/23 06:00 Water,Injection,Sterile 10 Ml Vial IJ 03/06/23 23:59 DIRECTED PRN PFSH Active Problems Active Problems: Problem Status Onset Code Erectile dysfunction N52.9 ETOH abuse F10.10 Peripheral neuropathy G62.9 B12 deficiency E53.8 Type 2 diabetes mellitus E11.9 Screening for colon cancer Z12.11 Urinary frequency R35.0 Sebaceous cyst L72.3 Metatarsalgia M77.40 Hyperplastic colon polyp K63.5 Bilateral sensorineural hearing loss H90.3 Adhesive capsulitis of left shoulder M75.02 Medical History Medical History BPH w urinary obs/LUTS Bunion, left foot Bunion, right foot Elevated blood pressure reading Fatigue Hearing loss History of ETOH abuse History of tobacco use Joint pain Retinopathy, bilateral Shortness of breath Snoring Surgical History Surgical History History of colonoscopy (~06/2021) No significant past surgical history Tobacco Smoking/Tobacco Use Status: Former Tobacco Use Alcohol Alcohol Intake: former Year quit: 2017 Substance Use Substance use: Never Substance use type: does not use Vital Signs and Lab Results Vital Signs Most Recent Vital Signs in EMR: Temp Pulse Resp BP Pulse Ox 36.5 C 76 18 120/83 97 02/05/23 10:07 02/05/23 10:07 02/05/23 10:07 02/05/23 10:07 02/05/23 10:07 Lab Results Blood Type / Crossmatch: No Data to Display Complete Blood Count: No Data to Display Complete Metabolic Panel: No Data to Display Liver Function Panel: No Data to Display Coagulation Panel: No Data to Display Cardiac Panel: No Data to Display Arterial Blood Gas: No Data to Display Venous Blood Gas: No Data to Display Pancreas Panel: No Data to Display Thyroid Panel: No Data to Display Infectious Disease: No Data to Display Blood Cultures: No Data to Display Toxicology Panel: No Data to Display Anesthesia Assessment and Plan Anesthesia History Personal History: No History of Anesthesia Complications Family History: No Family History of Anesthesia Complications Exercise Tolerance Exercise Tolerance: Metabolic Equivalents>4 Cardiac & Pulmonary Exam Cardiac Exam: Normal S1/S2 Heart Sounds Pulmonary Exam: Clear Bilateral Breath Sounds Implantable Cardiac Device Does patient have a Pacemaker or an ICD?: No Airway Exam Known Difficult Airway: No Mallampati Class: 1 Mouth Opening: Normal (> 3cm) Thyromental Distance: Greater than 3 cm Neck Range of Motion: Full ROM Neck Circumference: Thick Teeth Condition: Normal Dentition ASA Classification ASA Score: ASA 2 Emergency Case?: No NPO Status NPO Status: NPO Clears >2 hours, Solids >8 hours Anesthesia Plan Resuscitation Status: Full Code Anesthesia Technique: General Anesthesia Airway Planned: Natural Airway Pain Management: Surgeon and patient request nerve block Monitors Used: Standard Monitors Preoperative Comments:: 62 yo male for shoulder manipulation. Sig PMHx: B12 def/neuropathy, DM2 (Lantus, metformin), prev EtOH abuse, former smoker. \ Previous Anes: - colo, prop, natural airway, no issues.
--- NOTE | 2023-02-05 07:18 | W.PM.OP ---
Date of service: 02/05/23 Time of Service: 11:00 Operative Note Operative Note DATE OF PROCEDURE: 02/05/23 PRE-OP DIAGNOSIS: Left shoulder stiffness PROCEDURE: Left shoulder manipulation under anesthesia, CPT #49888 SURGEON: Man Singh ANESTHESIA TYPE: General LMA/ETT and Primary Nerve Block Refer to Anesthesia Record ESTIMATED BLOOD LOSS: 0 COMPLICATIONS: None Patient was transported to: same day Patient's condition: stable Indications: Please see complete medical record for details. Findings: Excellent release of adhesions, no instability or crepitation Procedure Description: In the operating room, general anesthesia was induced. The patient was positioned supine on the stretcher. Preoperative antibiotics were omitted. The correct patient, procedure, and side of the procedure were all verified prior to beginning. The Left shoulder was examined with range of motion about 105 degrees forward elevation and 15-20 degrees external rotation. These endpoints had a relatively firm, stiff feel. A short lever arm and gradual to steady gentle pressure was used to perform the manipulation alternating between external rotation at the side, forward elevation, and abduction with internal and external rotation. Deliberately gradually and carefully excellent releases were felt in forward elevation and external rotation. Less release needed in abduction and internal rotation. Range of motion was then tested and full. All endpoints were gently exaggerated. The shoulder joint remained stable. While the patient remained under anesthesia, all directions were stretched and repeated numerous times. The patient awoke from anesthesia without complication and was transferred to the recovery room in a stable condition.
--- NOTE | 2023-02-05 07:18 | W.PM.DSUDISC ---
Date of service: 02/05/23 Time of Service: 12:00 Discharge Plan Disposition Patient Disposition: Home Condition: Stable Discharge Details Attending Provider: Man Singh Primary Care Provider: Jannette Loyd Home Meds and New Rx's Prescriptions: New oxycodone 5 mg tablet 5 - 10 mg PO Q4H MDD 30 mg PRN (Reason: moderate to severe pain) Qty: 12 0RF Continued omega-3 fatty acids 500 mg capsule 500 mg PO DAILY gabapentin 300 mg capsule See Rx Instructions .ROUTE .COMPLEX Qty: 180 3RF Dose Instruction: TAKE ONE CAPSULE BY MOUTH TWICE A DAY IN COMBINATION WITH 600MG TABLETS TO EQUAL 900MG TWICE A DAY Rx Instructions: TAKE ONE CAPSULE AT BEDTIME WITH 600 MG TAB TO EQUAL 900MG at bedtime gabapentin 600 mg tablet See Rx Instructions .ROUTE .COMPLEX Qty: 90 3RF Dose Instruction: TAKE ONE TABLET BY MOUTH TWICE A DAY (TOTAL DAILY DOSE OF 900MG TWICE A DAY) Rx Instructions: TAKE ONE TABLET BY MOUTH TWICE A DAY (DAILY TOTAL 600 MG AM 900 MG PM) tamsulosin 0.4 mg capsule 0.4 mg PO DAILY allopurinol 100 mg tablet 100 mg PO DAILY multivitamin Tablet 1 tab PO DAILY vitamin B complex [B Complex 1] Tablet 1 tab PO DAILY metformin 500 mg tablet 1,000 mg PO BID vardenafil 10 mg tablet 10 mg PO DAILY insulin glargine [Lantus Solostar U-100 Insulin] 100 unit/mL (3 mL) insulin pen 3 unit subcut QPM celecoxib [Celebrex] 100 mg capsule 100 mg PO BID Discontinued naproxen 500 mg tablet 500 mg PO BID Discharge Instructions Additional Instructions: Surgery: Left shoulder manipulation under anesthesia Activity: Encourage increasing range of motion. Perform daily stretching exercises. Resume physical therapy tomorrow. Prescriptions: Continue home Celebrex for moderate pain & discomfort Oxycodone 5 mg take 1-2 every 4-6 hours as needed for severe pain You may use [id number] Tylenol (acetaminophen) as needed for mild pain. These pain medications may be taken all at once or in different combinations as needed. Also, recommend Colace (docusate) as a stool softener as surgery and pain medicine cause constipation. You may try kufh-puz-qjqnxce diphenhydramine (Benadryl) 25-50 mg nightly as a sleep aid Dressings: None Follow-up: 10-[address] Singh You may take off the leg compression stockings this evening at home. You may also leave them on a few days longer if you have a history of leg swelling or edema. Let us know right away if you develop any redness, drainage, fevers, chest pain, or trouble breathing. Do not drink alcohol or drive for at least 24 hours after anesthesia. Please call the office during business hours with any questions or concerns. Discharge Orders Discharge Orders: Discharge Order (Routine); Ordered 02/05/23 Ordered By: Man Singh DS: Diagnosis Discharge Diagnosis (1) Adhesive capsulitis of left shoulder: Status: Acute
[2023-02-05] MEDS: Lactated Ringers 1,000 ML 30 ML IV (10:24)
[2023-02-05] MEDS: fentaNYL 100 MCG/2 ML VIAL IVP ×2 (11:47→12:29)
[2023-02-05] MEDS: Ketorolac 15 MG/ML VIAL IVP (11:49)
[2023-02-05] MEDS: ACETAMINOPHEN 1,000 MG/100 ML BTL 400 MG IVPB (11:49)
--- NOTE | 2023-02-05 11:57 | W.ANESPOSTOP ---
Postoperative Evaluation Date, Time and Location Date Performed: 02/05/23 Time Performed: 11:57 Patient Location: PACU Vital Signs Most Recent Imported Vital Signs: Most Recent Vital Signs Temp Pulse Resp BP Pulse Ox 36.4 C L 81 17 114/78 95 02/05/23 10:59 02/05/23 10:59 02/05/23 10:59 02/05/23 10:59 02/05/23 10:59 Pain Score Most Recent Pain Score: Most Recent Pain Score Pain Level 4 02/05/23 10:59 Assessment Mental Status: Awake (Alert & Oriented to Patient Baseline) Airway and Respiratory Function: Patent airway with normal (patient baseline) respiratory exam Cardiovascular Function: Hemodynamically Stable Hydration Status: Adequately Hydrated Nausea & Vomiting: No Nausea or Vomiting Pain: Pain is tolerable per patient Peripheral Nerve Block: Regional nerve block not resolved at time of post operative discharge
--- NOTE | 2023-02-05 12:01 | W.ANESNERVE ---
Nerve Block Single Injection Procedure Date and Time Date Performed: 02/05/23 Procedure Start: 11:04 Location Where Procedure Performed Procedure Location: Day Surgery Unit Reason Performed: Postoperative Analgesia Requesting Provider: Man Singh Timeout Performed Timeout Performed: Yes Monitoring Used ECG, Blood Pressure and SpO2 Sterility Sterility: Hand Hygiene, Surgical Cap, Surgical Mask, Sterile Gloves and Chlorhexidine Sedation Given During Procedure Sedation Given (Indicate Dose Given): Versed IV Dose:: 2 mg Patient Mental Status Patient Mental Status: Sedate with meaningful communication Nerve Block 1st Nerve Block: Laterality: Left Block Type: Interscalene Ultrasound Image Saved?: Yes Needle / Catheter Used: 100mm SonoPlex II Local Anesthetic Bolus (Indicate Dose Given): Lidocaine used for local infiltration of skin, Bupivacaine 0.5% Dose:: 10 mL and Exparel Dose:: 10 mL Additives (Indicate Dose Given): None Ultrasound: Sterile probe cover and gel used Nerve Stimulator: Supplement to Ultrasound use and No twitch or parasthesia noted < 0.5 mA Paresthesia: None Procedure Tolerated: No Complications Procedure Outcome: Successful Procedure Comment: Difficulty in getting local to spread effectively in interscalene groove, more injected likely intramuscular than within the groove Performed By: Mina Still
== END 2023-02-05 13:58 | disposition home or self-care (01) ==
LOC: SUR 09:12
PROVIDERS: PCP Nurse Practitioner Family; Visit Provider Student in an Organized Health Care Education/Training Program
PROC: (CPT 23700; principal; 2023-02-05 11:30)
DX: M75.02 Adhesive capsulitis of left shoulder (principal)
CPT/HCPCS: 23700; 64415; 76942; J0131; J1885; J2001; J2250; J2704; J3010

== ENCOUNTER → 2023-02-17 09:19 | Outpatient (BNVA) | payer MEDICARE, MEDICAID, SELFPAY | PROVIDERS: PCP Nurse Practitioner Family; Referring Provider Nurse Practitioner Family; Visit Provider Student in an Organized Health Care Education/Training Program | DX: Z47.89 Encounter for other orthopedic aftercare (principal); M75.02 Adhesive capsulitis of left shoulder ==

== ENCOUNTER 2023-03-20 16:05 | Outpatient (REF) | payer MEDICARE, SELFPAY ==
[2023-03-20 14:39] LABS: HCT 41.4 % (40.0-50.0); HGB 14.5 g/dL (13.5-17.5); MCH 32.5 pg (27.0-33.0); MCV 93 fL (80-95); MPV 11.9 fL (8.0-11.0); Platelet Count 224 10^3/uL (130-400); RBC 4.46 10^6/uL (4.36-5.78); RDW 11.9 % (11.8-14.1); RDW-SD 40.9 fL; WBC 6.86 10^3/uL (4.4-10.8)
[2023-03-20 14:56] LABS: ALT 38 U/L (16-63); AST 17 U/L (15-37); Albumin 4.4 g/dL (3.4-5.0); Alkaline Phosphatase 43 U/L (46-116); Anion Gap 12.1 mmol/L (3-11); BUN 14 mg/dL (7-18); Bilirubin, Total 0.7 mg/dL (0.2-1.0); CO2 24.9 mmol/L (21.0-32.0); CREATININE 0.9 mg/dL (0.70-1.30); Calcium 9.4 mg/dL (8.5-10.1); Calculated LDL 122 mg/dL (<100); Chloride 104 mmol/L (98-107); Cholesterol 194 mg/dL (<200); Estimated GFR 97.17 (mL/min/1.73m2); Glucose 125 mg/dL (74-106); HDL Cholesterol 41 mg/dL (40-60); Potassium 4.2 mmol/L (3.5-5.1); Sodium 141 mmol/L (136-145); Total Protein 7.5 g/dL (6.4-8.2); Triglyceride 155 mg/dL (<150)
[2023-03-20 15:16] LABS: Uric Acid 6.8 mg/dL (3.5-7.2)
== END 2023-03-20 16:06 | disposition home or self-care (01) ==
LOC: NCHCN 16:05
PROVIDERS: PCP Nurse Practitioner Family; Visit Provider Nurse Practitioner Family
DX: E11.9 Type 2 diabetes mellitus without complications (principal); R00.1 Bradycardia, unspecified; M10.9 Gout, unspecified
CPT/HCPCS: 80053; 80061; 85027; 84550

== ENCOUNTER → 2023-05-05 09:21 | Outpatient (BNVA) | payer MEDICARE, SELFPAY | PROVIDERS: PCP Nurse Practitioner Family; Visit Provider Student in an Organized Health Care Education/Training Program | DX: Z47.89 Encounter for other orthopedic aftercare (principal); M75.02 Adhesive capsulitis of left shoulder ==

== ENCOUNTER → 2023-06-10 10:38 | Outpatient (BNVA) | payer MEDICARE, SELFPAY | PROVIDERS: PCP Nurse Practitioner Family; Visit Provider Nurse Practitioner Gerontology | DX: N40.1 Benign prostatic hyperplasia with lower urinary tract symptoms (principal); N13.8 Other obstructive and reflux uropathy | CPT/HCPCS: 51798; 81003; 99213 ==

== ENCOUNTER → 2023-06-17 10:27 | Outpatient (BNVA) | payer MEDICARE, SELFPAY | PROVIDERS: PCP Nurse Practitioner Family; Visit Provider Nurse Practitioner Adult Health | DX: G62.1 Alcoholic polyneuropathy (principal) | CPT/HCPCS: 99214 ==

== ENCOUNTER 2023-06-19 16:47 | Outpatient (REF) | payer MEDICARE, SELFPAY ==
[2023-06-19 15:01] LABS: Hemoglobin A1C 5.7 % (<5.7)
[2023-06-19 15:23] LABS: TSH (W/Ref FT4) 1.63 uIU/mL (0.36-3.74)
[2023-06-19 22:12] LABS: PSA, Screening 0.8 ng/mL (<=4.5)
== END 2023-06-19 16:48 | disposition home or self-care (01) ==
LOC: NCHCN 16:47
PROVIDERS: PCP Nurse Practitioner Family; Referring Provider Nurse Practitioner Family; Visit Provider Nurse Practitioner Family
DX: R00.1 Bradycardia, unspecified (principal); E11.9 Type 2 diabetes mellitus without complications; Z12.5 Encounter for screening for malignant neoplasm of prostate
CPT/HCPCS: 84153; 83036; 84443

== ENCOUNTER 2023-06-25 08:43 | Outpatient (RCR) | payer MEDICARE, SELFPAY ==
--- NOTE | 2023-06-25 09:45 | HOLTER_ITS ---
APPROVED REPORT Conclusion This is a 48-hour Holter monitor Predominant rhythm is sinus with rate of 85. Minimum was 66, maximum 119 There were no significant supraventricular dysrhythmias There were moderately frequent ventricular ectopic beats There was no atrial fibrillation, no high-grade AV block, no pauses greater than 3 seconds No patient symptoms were reported
== END 2023-07-19 23:59 | disposition home or self-care (01) ==
LOC: CARDOPNVT 08:43
PROVIDERS: PCP Nurse Practitioner Family; Visit Provider Internal Medicine Cardiovascular Disease
DX: R00.1 Bradycardia, unspecified (principal)
CPT/HCPCS: 93227; 93225; 93226

== ENCOUNTER → 2023-07-14 01:57 | Outpatient (CLI) | payer MEDICARE, SELFPAY ==
--- NOTE | 2023-07-14 08:30 | DI.US_ITS ---
APPROVED REPORT EXAM: Comprehensive 2D, Doppler, and color-flow Echocardiogram Patient Location: Out-Patient Crowd Controller: Sigrid Spencer RDCS (AE) Indications: Ventricular premature depolarization, Ventricular bigeminy Other Information Study Quality: Adequate Conclusion Normal left ventricualr wall thickness and chamber size. EF is 55-60%. Wall motion is normal Normal right ventrcular size and function Both atria are normal in size There are no structural valvular abnormalities Mild mitral regurgitation Estimated right ventricular systolic pressure is 16 mmHg Wall motion Left Ventricle The left ventricle is normal size. The left ventricular systolic function is normal. The left ventric ular ejection fraction is within the normal range. There is normal left ventricular wall thickness. T here is normal LV segmental wall motion. There is no ventricular septal defect visualized. LVEF is 57 %. Right Ventricle The right ventricle is normal size. The right ventricular systolic function is normal. Atria The left atrium size is normal. The right atrium size is normal. The interatrial septum is intact wit h no evidence for an atrial septal defect. Aortic Valve The aortic valve is normal in structure. Aortic valve is trileaflet. There is no aortic valvular sten osis. No aortic regurgitation is present. Mitral Valve The mitral valve is normal in structure. No evidence of mitral valve stenosis. Mild mitral regurgitat ion. Tricuspid Valve The tricuspid valve is normal in structure. There is no tricuspid valve stenosis. Trace tricuspid reg urgitation. The RVSP is 16.1mmHg. Pulmonic Valve The pulmonary valve is normal in structure. There is no pulmonic valvular stenosis. Trace pulmonic re gurgitation. Great Vessels The aortic root is normal in size. The ascending aorta is normal in size. Aortic arch is not well vis ualized. IVC is normal in size and collapses >50% with inspiration. Pericardium There is no pericardial effusion. 2D Dimensions IVSD d PLAX 0.64 cm M: 0.6-1.2 Ao Root d 3.24 cm M: 3.1 - 3.7 LVPW d PLAX 0.61 cm M: 0.6 - 1.2 Ao Asc Diam d 3.24 cm M: 2.6 - 3.4 LVID d PLAX 4.85 cm M: 4.2 - 5.8 LVDs 3.38 cm M: 2.5 - 4.0 LV EF Teichholz 57.3 % FS 30.16 % LV EDV (Teich) 109.9 mL LV ESV (Teich) 46.9 mL M-Mode TAPSE 2.26 cm (M/F) >1.7 Auto EF LV EDV A4C 146.6 mL LV EDV A2C 135.5 mL LV EDV BP 145.3 mL LV ESV A4C 63.5 mL LV ESV A2C 58.6 mL LV ESV BP 62.2 mL LVEF(%) A4C 56.7 % LVEF(%) A2C 56.7 % LVEF(%) BP 57.2 % LV SV A4C 83.1 ml LV SV A2C 76.9 ml LV SV BP 83.2 ml LV CO A4C 5.0 L/min LV CO A2C 4.3 L/min LV CO BP 4.7 L/min HR A4C 60.51 BPM HR A2C 56.52 BPM LV EDV Index (BP) LA Volume LA Length A4C 5.6 cm LA Length A2C 3.9 cm LA Area A4C s 17.82 cm2 LA Area A2C s 11.51 cm2 LA Vol A4C A-L 48.30 mL LA Vol A2C A-L 28.99 mL LA Vol Biplane A-L 44.9 mL LA Vol/BSA A4C A-L LA Vol/BSA A2C A-L LA Vol/BSA BP A-L 18.5 mL/m2 LA Vol A4C MOD 43.7 mL LA Vol A2C MOD 27.1 mL LA Vol BP MOD 41.0 mL RA Volume RA Area A4C 13.2 cm2 RA ESV A4C (A-L) 34.7mL RA Vol/BSA A4C A-L RA Length A4C 4.3 cm RA ESV A4C (MOD) 31.1mL LV Diastology MV E' medial 0.062 (>0.07 m/s) MV E Vmax 0.57 (0.4-1.3 m/s) MV E/E' MED 9.31 (<14) MV A Vmax 0.80 (0.4-1.3 m/s) MV E' lateral 0.087 (>0.1 m/s) E/A Ratio 0.7 MV E/E' LAT 6.55 (<14) MV E' Average 0.075 m/s MV E/E'(average) 7.69 Aortic Valve AoV Vmax 1.03 m/s LVOT Vmax 0.85 m/s AoV Peak Grad 4.3 mmHg LVOT Peak Grad 2.9 mmHg AoV Area (Vmax) 2.89 cm2 LVOT VTI 0.185 m AoV VTI 0.240 m LVOT Mean Grad 1.8 mmHg AoV Mean Андрей. 0.74 m/s LVOT SV 64.64 mL AoV Mean Grad 2.5 mmHg LVOT Diam s 2.10 cm AoV Area (VTI) 2.70 cm2 Velocity Ratio 0.83 Mitral Valve MV DT 259 (160-240 msec) MV Vmax TIPS 0.84 m/s MV Mean Grad 1.0 (<2mmHg) MV VTI 0.245 m Pulmonary Valve PV Vmax 0.98 (0.5-1.5 m/s) RVOT Vmax 0.67 m/s PV Peak Grad 3.9 mmHg RVOT Peak Gr. 1.8 mmHg PV Mean Андрей 0.59 m/s RVOT VTI 0.159 m PV Mean Grad 1.6 mmHg RVOT Mean Gr. 0.9 mmHg Tricuspid Valve RA Pressure 3.00 mmHg TR Vmax 1.81 m/s TV S' 0.10 m/s TR Peak Grad 13.0 mmHg RVSP (TR) 16.1 mmHg
== END ==
PROVIDERS: PCP Nurse Practitioner Family; Visit Provider Nurse Practitioner Family
DX: I49.3 Ventricular premature depolarization (principal)
CPT/HCPCS: 93306

== ENCOUNTER → 2023-08-11 09:23 | Outpatient (BNVA) | payer MEDICARE, SELFPAY | PROVIDERS: PCP Nurse Practitioner Family; Referring Provider Nurse Practitioner Family; Visit Provider Student in an Organized Health Care Education/Training Program | DX: M75.02 Adhesive capsulitis of left shoulder (principal) | CPT/HCPCS: 99213 ==

== ENCOUNTER → 2023-08-13 09:11 | Outpatient (BNVA) | payer MEDICARE, SELFPAY | PROVIDERS: PCP Nurse Practitioner Family; Referring Provider Nurse Practitioner Family; Visit Provider Nurse Practitioner Adult Health | DX: G62.1 Alcoholic polyneuropathy (principal) | CPT/HCPCS: 99213 ==

== ENCOUNTER → 2023-12-09 10:45 | Outpatient (BNVA) | payer MEDICARE, SELFPAY | PROVIDERS: PCP Nurse Practitioner Family; Visit Provider Nurse Practitioner Gerontology | DX: N40.1 Benign prostatic hyperplasia with lower urinary tract symptoms (principal); N13.8 Other obstructive and reflux uropathy; R35.0 Frequency of micturition | CPT/HCPCS: 51798; 99213 ==

== ENCOUNTER 2024-01-11 03:39 | Outpatient (CLI) | payer MEDICARE, SELFPAY ==
[2024-01-18 17:44] LABS: Testosterone, Free 9.48 ng/dL (3.67-13.9); Testosterone, Total 353 ng/dL (240-950)
== END 2024-01-11 03:40 | disposition home or self-care (01) ==
LOC: LBO 03:39
PROVIDERS: PCP Nurse Practitioner Family; Visit Provider Nurse Practitioner Family
DX: F52.21 Male erectile disorder (principal)
CPT/HCPCS: 36415; 84402; 84403

== ENCOUNTER → 2024-02-11 08:53 | Outpatient (BNVA) | payer MEDICARE, SELFPAY | PROVIDERS: PCP Nurse Practitioner Family; Visit Provider Nurse Practitioner Adult Health | DX: G62.1 Alcoholic polyneuropathy (principal); E53.8 Deficiency of other specified B group vitamins; E11.9 Type 2 diabetes mellitus without complications | CPT/HCPCS: 99214 ==

== ENCOUNTER 2024-03-15 16:49 | Outpatient (REF) | payer MEDICARE, SELFPAY ==
[2024-03-15 14:23] LABS: HCT 42.7 % (40.0-50.0); HGB 14.4 g/dL (13.5-17.5); MCH 31.9 pg (27.0-33.0); MCHC 33.7 % (32.0-36.0); MCV 95 fL (80-95); MPV 10.8 fL (8.0-11.0); Platelet Count 255 10^3/uL (130-400); RBC 4.51 10^6/uL (4.36-5.78); RDW 11.9 % (11.8-14.1); RDW-SD 40.9 fL; WBC 7.98 10^3/uL (4.4-10.8)
[2024-03-15 15:16] LABS: ALT 26 U/L (16-63); AST 16 U/L (15-37); Albumin 4.3 g/dL (3.4-5.0); Alkaline Phosphatase 62 U/L (46-116); BUN 10 mg/dL (7-18); Bilirubin, Total 0.71 mg/dL (0.2-1.0); Calcium 9.6 mg/dL (8.5-10.1); Calculated LDL 135 mg/dL (<100); Chloride 104 mmol/L (98-107); Cholesterol 201 mg/dL (<200); Glucose 129 mg/dL (74-106); HDL Cholesterol 47 mg/dL (40-60); Potassium 4.8 mmol/L (3.5-5.1); Sodium 140 mmol/L (136-145); Total Protein 7.7 g/dL (6.4-8.2); Triglyceride 96 mg/dL (<150); Vitamin B12 > 2000 pg/mL (193-986)
[2024-03-15 15:40] LABS: Uric Acid 6.3 mg/dL (3.5-7.2)
== END 2024-03-15 16:50 | disposition home or self-care (01) ==
LOC: NCHCN 16:49
PROVIDERS: PCP Nurse Practitioner Family; Visit Provider Nurse Practitioner Family
DX: E11.9 Type 2 diabetes mellitus without complications (principal); Z86.2 Personal history of diseases of the blood and blood-forming organs and certain disorders involving the immune mechanism; M10.9 Gout, unspecified; E78.5 Hyperlipidemia, unspecified
CPT/HCPCS: 80053; 80061; 85027; 82607; 84550

== ENCOUNTER 2024-06-16 15:15 | Outpatient (REF) | payer MEDICARE, SELFPAY ==
[2024-06-16 16:44] LABS: COMMENT (LAB VIEW ONLY) 54.23 mg/dL
== END 2024-06-16 15:16 | disposition home or self-care (01) ==
LOC: NCHCN 15:15
PROVIDERS: PCP Nurse Practitioner Family; Visit Provider Nurse Practitioner Family
DX: E11.9 Type 2 diabetes mellitus without complications (principal)
CPT/HCPCS: 82043; 82570

== ENCOUNTER → 2024-08-11 08:53 | Outpatient (BNVA) | payer MEDICARE, SELFPAY | PROVIDERS: PCP Nurse Practitioner Family; Visit Provider Nurse Practitioner Adult Health | DX: G62.1 Alcoholic polyneuropathy (principal); E11.9 Type 2 diabetes mellitus without complications; D51.9 Vitamin B12 deficiency anemia, unspecified | CPT/HCPCS: 99214 ==

== ENCOUNTER 2024-12-09 01:17 | Outpatient (CLI) | payer MEDICARE, SELFPAY ==
--- NOTE | 2024-12-09 | DI.MRI_ITS ---
Exam(s) MR UPPER JOINT RT WO EXAM: MR UPPER JOINT RT WO CLINICAL HISTORY: Pain in rt shoulder M25.511. TECHNIQUE: Multiplanar multisequence MRI was performed. COMPARISON: None. FINDINGS: BONES: There is no fracture or contusion pattern. JOINTS:The acromioclavicular joint shows some inferior spurring with apparent impression on the supraspinatus muscle. The glenohumeral joint is normal. TENDONS: Supraspinatus: High signal within the fibers without full-thickness tear. The findings may represent severe tendinitis versus partial tear. Infraspinatus: Unremarkable. Subscapularis: Unremarkable. [place]: Unremarkable. Biceps and [place]: Unremarkable. MUSCLES: Unremarkable. GLENOID LABRUM: Unremarkable on this noncontrast examination. SOFT TISSUES: Unremarkable. BURSAE: Subacromial and subdeltoid bursae shows a minimal amount of fluid.. IMPRESSION: Partial tear versus tendinitis of the supraspinatus. Some impingement by the AC joint. DATA REPOSITORY:
== END 2024-12-09 01:37 ==
LOC: DI 01:17
PROVIDERS: PCP Nurse Practitioner Family; Visit Provider Nurse Practitioner Family
DX: M75.111 Incomplete rotator cuff tear or rupture of right shoulder, not specified as traumatic (principal)
CPT/HCPCS: 73221

== ENCOUNTER 2024-12-14 12:04 | Outpatient (CLI) | payer MEDICARE, SELFPAY ==
--- NOTE | 2024-12-14 09:15 | DI.RAD_ITS ---
Exam(s) XR SHOULDER RT COMPLETE 2+V EXAM: XR SHOULDER RT COMPLETE 2+V CLINICAL HISTORY: RIGHT SHOULDER PAIN. TECHNIQUE: 2D digital imaging was performed of the right shoulder. Two images were obtained. Grashey and axillary views were obtained. COMPARISON: No exams were available for comparison FINDINGS: BONES: No acute fracture is present. No bony destructive lesion is seen. JOINTS: No dislocation present. SOFT TISSUE: Normal. IMPRESSION: Unremarkable radiographs of the right shoulder. DATA REPOSITORY: RADIATION DOSE DELIVERED:
== END 2024-12-14 12:05 | disposition home or self-care (01) ==
LOC: DIORS 12:04
PROVIDERS: PCP Nurse Practitioner Family; Referring Provider Nurse Practitioner Family; Visit Provider Student in an Organized Health Care Education/Training Program
DX: S46.011A Strain of muscle(s) and tendon(s) of the rotator cuff of right shoulder, initial encounter (principal); M25.511 Pain in right shoulder; E11.9 Type 2 diabetes mellitus without complications
CPT/HCPCS: 99213; 73030

== ENCOUNTER 2024-12-16 00:52 | Outpatient (CLI) | payer MEDICARE, SELFPAY ==
--- NOTE | 2024-12-16 09:59 | DI.RAD_ITS ---
Exam(s) XR WRIST LT COMPLETE EXAM: XR WRIST LT COMPLETE CLINICAL HISTORY: LT WRIST PAIN,M25.532. TECHNIQUE: 2D digital imaging was performed. COMPARISON: No exams were available for comparison FINDINGS: 3 views No evidence of fracture or dislocation nor significant ulnar variance. Scaphoid and scapholunate distance are normal. Bone density is normal. No osseous lesions and there are no erosions. IMPRESSION: No significant osseous findings in left wrist. DATA REPOSITORY: RADIATION DOSE DELIVERED:
== END 2024-12-16 01:12 ==
LOC: DI 00:53
PROVIDERS: PCP Nurse Practitioner Family; Visit Provider Nurse Practitioner Family
DX: M25.532 Pain in left wrist (principal)
CPT/HCPCS: 73110

== ENCOUNTER → 2025-01-03 09:16 | Outpatient (BNVA) | payer MEDICARE, SELFPAY | PROVIDERS: PCP Nurse Practitioner Family; Referring Provider Nurse Practitioner Family; Visit Provider Physician Assistant | DX: S60.212A Contusion of left wrist, initial encounter (principal); W22.8XXA Striking against or struck by other objects, initial encounter; E11.40 Type 2 diabetes mellitus with diabetic neuropathy, unspecified | CPT/HCPCS: 99213 ==

== ENCOUNTER → 2025-02-09 09:58 | Outpatient (BNVA) | payer MEDICARE, SELFPAY | PROVIDERS: PCP Nurse Practitioner Family; Visit Provider Nurse Practitioner Adult Health | DX: E11.42 Type 2 diabetes mellitus with diabetic polyneuropathy (principal); G62.1 Alcoholic polyneuropathy | CPT/HCPCS: 99215 ==

== ENCOUNTER → 2025-02-13 09:17 | Outpatient (BNVA) | payer MEDICARE, SELFPAY | PROVIDERS: PCP Nurse Practitioner Family; Referring Provider Nurse Practitioner Family; Visit Provider Student in an Organized Health Care Education/Training Program | DX: S46.011A Strain of muscle(s) and tendon(s) of the rotator cuff of right shoulder, initial encounter (principal); M94.211 Chondromalacia, right shoulder | CPT/HCPCS: 99213 ==

== ENCOUNTER → 2025-02-15 09:21 | Outpatient (BNVA) | payer MEDICARE, SELFPAY | PROVIDERS: PCP Nurse Practitioner Family; Referring Provider Nurse Practitioner Family; Visit Provider Student in an Organized Health Care Education/Training Program | DX: S46.011A Strain of muscle(s) and tendon(s) of the rotator cuff of right shoulder, initial encounter (principal); M94.211 Chondromalacia, right shoulder; X58.XXXA Exposure to other specified factors, initial encounter | CPT/HCPCS: 99213 ==

== ENCOUNTER → 2025-03-10 09:20 | Outpatient (BNVA) | payer MEDICARE, SELFPAY | PROVIDERS: PCP Nurse Practitioner Family; Referring Provider Nurse Practitioner Family; Visit Provider Physician Assistant | DX: M94.211 Chondromalacia, right shoulder (principal) | CPT/HCPCS: 20611; J1010 ==

== ENCOUNTER 2025-03-22 11:29 | Outpatient (REF) | payer MEDICARE, SELFPAY ==
[2025-03-22 15:51] LABS: HCT 41.5 % (40.0-50.0); HGB 14.0 g/dL (13.5-17.5); MCH 31.5 pg (27.0-33.0); MCHC 33.7 % (32.0-36.0); MCV 94 fL (80-95); MPV 10.9 fL (8.0-11.0); Platelet Count 201 10^3/uL (130-400); RBC 4.44 10^6/uL (4.36-5.78); RDW 11.7 % (11.8-14.1); RDW-SD 40.2 fL; WBC 6.73 10^3/uL (4.4-10.8)
[2025-03-22 16:14] LABS: ALT 38 U/L (10-49); AST 22 U/L (<34); Albumin 4.6 g/dL (3.2-5.0); Alkaline Phosphatase 46 U/L (46-116); Anion Gap 10.1 mmol/L (3-11); BUN 19 mg/dL (9-23); Bilirubin, Total 0.90 mg/dL (0.2-1.2); CO2 26.9 mmol/L (20.0-31.0); Calcium 9.3 mg/dL (8.3-10.6); Chloride 105 mmol/L (98-107); Cholesterol 208 mg/dL (<200); Glucose 135 mg/dL (74-106); HDL Cholesterol 44 mg/dL (>40); Potassium 4.4 mmol/L (3.5-5.1); Sodium 142 mmol/L (136-145); Total Protein 6.9 g/dL (5.7-8.2)
== END 2025-03-22 11:30 | disposition home or self-care (01) ==
LOC: NCHCN 11:29
PROVIDERS: PCP Nurse Practitioner Family; Visit Provider Nurse Practitioner Family
DX: E11.9 Type 2 diabetes mellitus without complications (principal); E78.5 Hyperlipidemia, unspecified
CPT/HCPCS: 80053; 80061; 85027